=== PATIENT | female | born 1975 | race Two or more races ===

== ENCOUNTER 2019-12-04 10:32 | Inpatient (IN) | payer MEDICAID ==
[~2019-12-04] VITALS: Ht 162.6 cm; Wt 86.8 kg
[2019-12-04 11:25] LABS: Hemoglobin 9.9 g/dL (12.2-16.2); White Blood Cell 4.5 10^3/uL (4.4-10.8)
[2019-12-04 11:28] LABS: Hematocrit 32.6 % (36.0-46.0); Mean Corpuscular Hemoglobin 22.9 pg (28.0-32.0); Mean Corpuscular Hgb Conc. 30.5 g/dL (32.0-36.0); Mean Corpuscular Volume 75.4 fL (80.0-100.0); Platelet Count (auto) 181 10^3/uL (140-450); Red Blood Cells 4.33 10^6/uL (4.0-5.20)
[2019-12-04] MEDS ORDERED: SODIUM CHLORIDE 0.9% 1,000 ML IVB ONE (11:29)
[2019-12-04] MEDS ORDERED: FOLIC ACID 1 MG, MULTIPLE VITAMIN 10 ML, MAGNESIUM SULF SDV 50% 8 MEQ, THIAMINE INJ 100... INJ STA ×5 (11:29)
[2019-12-04 11:30] LABS: Red Cell Distribution Width 21.2 % (11.8-14.3)
[2019-12-04] MEDS ORDERED: SODIUM CHLORIDE 0.9% 1,000 ML IV ONE (11:30)
[2019-12-04] MEDS ORDERED: THIAMINE 100mg/ml INJ (200mg/2ml VIAL) IV ONE ×2 (11:30→14:00)
[2019-12-04 11:31] LABS: Basophils % (auto) 0.8 % (0.0-2.0); Lymphocytes % (auto) 40.4 % (10.0-50.0); Monocytes % (auto) 8.4 % (0.0-12.0); Neutrophils % (auto) 49.4 % (37.0-80.0); Nucleated Red Blood Cells % 0.2 %
[2019-12-04 11:32] LABS: Basophils # (auto) 0 10 ^3/uL (0-0.2); Eosinophils # (auto) 0 10 ^3/uL (0-0.8); Lymphocytes # (auto) 1.8 10 ^3/uL (0.4-5.4); Monocytes # (auto) 0.4 10 ^3/uL (0-1.3); Neutrophils # (auto) 2.2 10 ^3/uL (1.6-8.6)
[2019-12-04 11:42] LABS: Albumin 3.6 g/dL (3.4-5.0); Anion Gap 16 (5-15); Blood Urea Nitrogen 11 mg/dL (7-18); Calcium 7.4 mg/dL (8.5-10.1); Carbon Dioxide 16 mmol/L (21-32); Chloride 105 mmol/L (98-107); Glucose 78 mg/dL (74-106); Potassium 3.5 mmol/L (3.5-5.1); Sodium 137 mmol/L (136-145)
[2019-12-04] MEDS ORDERED: ONDANSETRON HCL 4 MG/2 ML VIAL ONE (11:43)
[2019-12-04] MEDS ORDERED: ONDANSETRON HCL 4 MG/2 ML VIAL IV ONE (11:45)
[2019-12-04 11:47] LABS: Alanine Aminotransferase 57 U/L (13-56); Alkaline Phosphatase 96 U/L (45-117); Aspartate Aminotransferase 61 U/L (15-37); BUN/Creatinine Ratio 12.5; Bilirubin, Total 0.8 mg/dL (0.2-1.0); GFR African American 89 mL/min; GFR Non-African American 74 mL/min; Total Protein 7.9 g/dL (6.4-8.2)
[2019-12-04 12:44] LABS: Amphetamine Screen, Urine NEGATIVE (NEGATIVE); Barbiturate Scree,Urine NEGATIVE (NEGATIVE); Benzodiazephine Screen, Urine NEGATIVE (NEGATIVE); Cannabinoid Screen, Urine NEGATIVE (NEGATIVE); Cocaine Screen, Urine NEGATIVE (NEGATIVE); Opiate Scree,Urine NEGATIVE (NEGATIVE); Phencyclidine Screen, Urine NEGATIVE (NEGATIVE)
[2019-12-04 13:00] LABS: Urine Bacteria FEW /hpf (None Seen); Urine Blood Negative /uL (Negative); Urine Mucus FEW (None Seen); Urine WBC 2 /hpf (0 - 5)
[2019-12-04] MEDS ORDERED: LORazepam 2MG/ML-1ML VIAL IV ONE (13:00)
[2019-12-04] MEDS ORDERED: PROMETHAZINE HCL 25 MG/ML 1ML IV PRN (14:00)
[2019-12-04] MEDS ORDERED: MORPHINE SULF INJ 2 MG/ML SYRINGE 1ML IV PRN (14:00)
[2019-12-04] MEDS ORDERED: NITROGLYCERIN 0.4 MG SL TAB SL PRN (14:00)
[2019-12-04] MEDS ORDERED: traMADol HCL 50 MG TAB PO PRN (14:00)
[2019-12-04] MEDS ORDERED: chlordiazePOXIDE HCL 25 MG CAP PO PRN (14:00)
[2019-12-04] MEDS ORDERED: LORazepam 0.5 MG TAB PO PRN (14:00)
[2019-12-04] MEDS: SODIUM CHLORIDE 0.9% 1,000 ML IV SCH ×2 (14:30→22:27)
[2019-12-04] MEDS ORDERED: LEVOTHYROXINE SODIUM 100 MCG/5 ML INJ IV ONE (15:15)
--- NOTE | 2019-12-04 15:42 | NUR ---
Telemetry admit from [facility] BARNES admitted to Telemetry unit after SBAR received. Patient oriented to CHARMAINE hayden RN, unit, room, bed, and unit policies regarding patient care and visiting hours. Patient now on continuous telemetry monitoring, tele box # 26 and telemetry reading on arrival to unit is SR 84. Patient weighed by bedscale and encouraged to call if they need something. All questions and concerns addressed, patient verbalized understanding.
[2019-12-04] MEDS ORDERED: IBUP1CAP5 PO (16:02)
[2019-12-04 16:34] VITALS: BP 124/91
[2019-12-04] MEDS: chlordiazePOXIDE HCL 5 MG CAP PO SCH ×2 (18:14→23:51)
[2019-12-04 18:15] LABS: Hematocrit 30.8 % (36.0-46.0); Hemoglobin 9.5 g/dL (12.2-16.2)
--- NOTE | 2019-12-04 19:10 | NUR ---
CLOSING SHIFT NOTE Care endorsed to pond sawyer RNSujata. Patient resting in bed, no signs of distress noted.
--- NOTE | 2019-12-04 19:10 | NUR ---
Opening Shift Note Assumed care of patient, awake and alert, but began to cry easily. Pt states she has been trying to pray but feels that "this time I've gone to far for Lance to forgive me." This RN reminded pt that a criminal had been on a cross next to Lance and asked for forgiveness, and Lance gave it to him. This nurse then prayed with pt. Pt smiling, at ease and thanked nurse. No S/S of SOB or pain. Instructed on POC and to call for assist PRN, will continue to monitor for changes Q1hr and PRN. Call light to pt's L side in bed.
[2019-12-04 21:32] VITALS: BP 128/72
[2019-12-05 00:44] LABS: Hematocrit 29.1 % (36.0-46.0); Hemoglobin 9.2 g/dL (12.2-16.2)
[2019-12-05 05:24] VITALS: BP 127/91
[2019-12-05 06:23] LABS: Hemoglobin 9.4 g/dL (12.2-16.2)
[2019-12-05 06:27] LABS: Hematocrit 29.8 % (36.0-46.0)
[2019-12-05] MEDS: SODIUM CHLORIDE 0.9% 1,000 ML IV SCH (06:30)
[2019-12-05] MEDS: chlordiazePOXIDE HCL 5 MG CAP PO SCH ×4 (06:30→23:38)
[2019-12-05] MEDS: LEVOTHYROXINE SODIUM 112 MCG TAB PO SCH (06:30)
[2019-12-05 09:00] VITALS: BP 117/84
--- NOTE | 2019-12-05 09:30 | NUR ---
at bedside MD Guerrero at bedside, aware of patient's status including mild tremors noted to bilat hands. New orders received for b12 lab draw, prozac and dc IVF. Will carry out orders and cont care.
[2019-12-05] MEDS ORDERED: FLUoxetine HCL 10 MG CAP PO ONE (09:45)
[2019-12-05] MEDS: THIAMINE 100mg/ml INJ (200mg/2ml VIAL) IV SCH (10:12)
[2019-12-05] MEDS: PANTOPRAZOLE 40 MG TAB PO SCH (10:12)
[2019-12-05 13:00] VITALS: BP 116/80
[2019-12-05 17:00] VITALS: BP 118/75
--- NOTE | 2019-12-05 18:57 | NUR ---
Patient resting comfortably in bed in no acute distress or sob. Call light within reach. Fall precs in place per protocol. Will endorse care to Noman horn
--- NOTE | 2019-12-05 19:00 | NUR ---
Patient resting in bed. Stated no complaints of pain,discomfort or shortness of breath. Patient is AOx4 and on room air. Bed is locked in lowest position with side rails up x2. Will continue to monitor.
[2019-12-05 22:00] VITALS: BP 127/78
[2019-12-06 05:35] VITALS: BP 116/80
[2019-12-06] MEDS: chlordiazePOXIDE HCL 5 MG CAP PO SCH ×3 (05:41→17:27)
[2019-12-06] MEDS: LEVOTHYROXINE SODIUM 112 MCG TAB PO SCH (06:42)
[2019-12-06] MEDS: PANTOPRAZOLE 40 MG TAB PO SCH (08:11)
[2019-12-06] MEDS: THIAMINE 100mg/ml INJ (200mg/2ml VIAL) IV SCH (08:11)
[2019-12-06 09:00] VITALS: BP 120/79
[2019-12-06] MEDS ORDERED: FLUoxetine HCL 10 MG CAP PO SCH (10:00)
[2019-12-06] MEDS ORDERED: CYANOCOBALAMIN 500 MCG TAB PO SCH (10:00)
[2019-12-06] MEDS ORDERED: LEVO125T7 PO (10:15)
[2019-12-06 13:00] VITALS: BP 123/77
--- NOTE | 2019-12-06 15:03 | NUR ---
Faxed medication prescriptions to pharmacy to fill.
--- NOTE | 2019-12-06 15:03 | NUR ---
RE: transport home Jolie reported that transport should be here at about 4:30.
--- NOTE | 2019-12-06 16:23 | NUR ---
Assessment Patient is a 44-year-old female who is alert and oriented. Prior to admission patient lived home with family and function independently. Patient informed me she can care for his own ADLs. Patient stated she does not need any medical equipment now. Per patient she will return home to her prior living arrangements post discharge and she will need [facility] transportation. Advised patient there is a social service consult for [facility] abuse. Offered patient resources for substance abused. Patient accepted resources. Patient informed she was sober for 6 months and was attending rehabilitation but decline when she moved to [place] and she did not have transportation to continue receiving service. Patient stated she decided to continue without the help but became depress after losing her job. Informed patient he has a right to participate in all discharge planning. Patient verbalized understanding and agreed to discharge plan home. Faxed transportation form request to [facility] requesting for a 16:30 orange picker machine operator time. Per Marcelina with [facility] transportation has been arranged with R[facility] Sh[facility] Ph:( [phone]) via [employer] with a 16:30 orange picker machine operator time. Informed EUFEMIA Yu. Addendum: 12/06/19 at 1625 by RUBY HER Amended: Links added.
--- NOTE | 2019-12-06 17:00 | NUR ---
Patients IV discontinued. Catheter intact. Tolerated well
--- NOTE | 2019-12-06 17:11 | NUR ---
Patient medications given to patient from pharmacy
--- NOTE | 2019-12-06 17:39 | NUR ---
Patient discharged with all belongings, no s/s of distress noted at time of DC. Patient discharged with family. Addendum: 12/06/19 at 1756 by Michelle Grace RN WRONG PATIENT.
--- NOTE | 2019-12-06 17:56 | NUR ---
Patient discharged with all belongings and medications. Patient ambulated (per her request), with her transporters. No s/s of distress noted at time of DC. Patient thanks staff for their help.
== END 2019-12-06 17:56 | disposition home or self-care (01) | DRG 775 ==
LOC: ER 10:32 → TELE 10:33 → TELE-CENTR 15:48
PROVIDERS: ADMIT Internal Medicine; ATTEND Internal Medicine
DX: F10.231 Alcohol dependence with withdrawal delirium (principal); K70.10 Alcoholic hepatitis without ascites; F33.9 Major depressive disorder, recurrent, unspecified; E03.9 Hypothyroidism, unspecified; G62.9 Polyneuropathy, unspecified; D50.8 Other iron deficiency anemias; K29.20 Alcoholic gastritis without bleeding; F41.9 Anxiety disorder, unspecified; I10 Essential (primary) hypertension; E66.3 Overweight; Y90.9 Presence of alcohol in blood, level not specified; Z68.30 Body mass index [BMI] 30.0-30.9, adult; Z91.19 Patient's noncompliance with other medical treatment and regimen; Z85.850 Personal history of malignant neoplasm of thyroid
CPT/HCPCS: 36415; 80053; 80307; 80320; 81001; 81025; 82607; 82962; 83735; 84443; 84484; 85007; 85014; 85018; 85025; 85027; 85045; 96361; 96365; 96375; G0378; J2405; J3490

== ENCOUNTER 2019-12-16 11:07 | Inpatient (IN) | payer MEDICAID ==
[~2019-12-16] VITALS: Ht 162.6 cm; Wt 82.1 kg
[~2019-12-16 11:07] MED LIST: LEVO125T7 PO
[2019-12-16] MEDS ORDERED: SODIUM CHLORIDE 0.9% 1,000 ML IVB ONE (11:14)
[2019-12-16] MEDS ORDERED: PROCHLORPERAZINE EDISYLATE 5 MG/ML 2ML VIAL IV ONE (11:15)
[2019-12-16] MEDS ORDERED: LORazepam 2MG/ML-1ML VIAL IV ONE (11:15)
[2019-12-16] MEDS ORDERED: PANTOPRAZOLE 40 MG/10 ML VIAL INJ IV ONE (11:15)
[2019-12-16 11:34] LABS: Basophils # (auto) 0 10 ^3/uL (0-0.2); Basophils % (auto) 0.2 % (0.0-2.0); Eosinophils # (auto) 0 10 ^3/uL (0-0.8)
[2019-12-16 11:37] LABS: Hemoglobin 10.8 g/dL (12.2-16.2); Lymphocytes # (auto) 0.7 10 ^3/uL (0.4-5.4); Lymphocytes % (auto) 5.1 % (10.0-50.0); Mean Corpuscular Hemoglobin 23.6 pg (28.0-32.0); Mean Corpuscular Hgb Conc. 29.2 g/dL (32.0-36.0); Mean Corpuscular Volume 80.9 fL (80.0-100.0); Monocytes # (auto) 0.9 10 ^3/uL (0-1.3); Monocytes % (auto) 6.9 % (0.0-12.0); Neutrophils # (auto) 11.6 10 ^3/uL (1.6-8.6); Neutrophils % (auto) 87.8 % (37.0-80.0); Nucleated Red Blood Cells % 0.3 %; Platelet Count (auto) 306 10^3/uL (140-450); Red Blood Cells 4.57 10^6/uL (4.0-5.20); Red Cell Distribution Width 21.1 % (11.8-14.3); White Blood Cell 13.3 10^3/uL (4.4-10.8)
[2019-12-16 11:51] LABS: Albumin 4.7 g/dL (3.4-5.0); Anion Gap 23 (5-15); Blood Alcohol < 3.0 mg/dL (0-5); Blood Urea Nitrogen 11 mg/dL (7-18); Calcium 7.8 mg/dL (8.5-10.1); Chloride 107 mmol/L (98-107); Glucose 178 mg/dL (74-106); Lipase 523 U/L (73-393); Potassium 4.6 mmol/L (3.5-5.1); Sodium 136 mmol/L (136-145)
[2019-12-16 11:55] LABS: Alanine Aminotransferase 51 U/L (13-56); Alkaline Phosphatase 122 U/L (45-117); Aspartate Aminotransferase 51 U/L (15-37); BUN/Creatinine Ratio 6.8; Bilirubin, Total 1.8 mg/dL (0.2-1.0); GFR African American 44 mL/min; GFR Non-African American 37 mL/min; Total Protein 10.2 g/dL (6.4-8.2)
[2019-12-16 11:59] LABS: Carbon Dioxide 6 mmol/L (21-32)
[2019-12-16] MEDS ORDERED: cefTRIAXone 1GM/50ML D5W 50 ML IV ONE (14:45)
[2019-12-16] MEDS ORDERED: MORPHINE SULF INJ 2 MG/ML SYRINGE 1ML IV PRN (14:45)
[2019-12-16] MEDS ORDERED: SODIUM CHLORIDE 0.9% 1,000 ML IV ONE (14:45)
[2019-12-16] MEDS ORDERED: NITROGLYCERIN 0.4 MG SL TAB SL PRN (14:45)
[2019-12-16] MEDS ORDERED: SODIUM CHLORIDE 0.9% 2,400 ML IV ONE (15:00)
[2019-12-16 15:21] LABS: Salicylate 2.4 mg/dL (2.8-20.0)
[2019-12-16 15:22] LABS: Acetaminophen < 2.0 ug/mL (10-30)
[2019-12-16] MEDS: SODIUM CHLORIDE 0.9% 1,000 ML IV SCH (16:42)
[2019-12-16] MEDS ORDERED: THIAMINE 100mg/ml INJ (200mg/2ml VIAL) IV ONE (16:45)
[2019-12-16] MEDS ORDERED: chlordiazePOXIDE HCL 25 MG CAP PO PRN (16:45)
[2019-12-16] MEDS: chlordiazePOXIDE HCL 5 MG CAP PO SCH (17:42)
[2019-12-16 18:04] LABS: Hemoglobin 9.6 g/dL (12.2-16.2)
[2019-12-16 18:06] LABS: INR 1.17 (0.9-1.15)
[2019-12-16 18:10] LABS: BUN/Creatinine Ratio 7.2; Calcium 7.3 mg/dL (8.5-10.1); Potassium 3.9 mmol/L (3.5-5.1)
--- NOTE | 2019-12-16 19:30 | NUR ---
Opening Shift Note Assumed care of patient, awake and alert x4. No S/S of distress/SOB or pain. Call light is within reach, side rails up x2, bed is in the lowest position. Instructed on POC and to call for assist PRN, will continue to monitor for changes Q1hr and PRN.
[2019-12-16 22:00] VITALS: BP 116/72
[2019-12-16] MEDS: PANTOPRAZOLE 40 MG/10 ML VIAL INJ IV SCH (22:31)
[2019-12-16] MEDS: metroNIDAZOLE 500MG/100ML 100 ML IV SCH (22:31)
--- NOTE | 2019-12-16 23:03 | NUR ---
Urine sample collected and sent to lab via [email or web address] system.
[2019-12-16 23:35] LABS: Urine Bacteria FEW /hpf (None Seen); Urine Blood 1+ /uL (Negative); Urine Mucus FEW (None Seen); Urine Specific Gravity 1.014 (1.001-1.035); Urine WBC 4 /hpf (0 - 5)
[2019-12-16 23:48] LABS: Amphetamine Screen, Urine NEGATIVE (NEGATIVE); Barbiturate Scree,Urine NEGATIVE (NEGATIVE); Benzodiazephine Screen, Urine POSITIVE (NEGATIVE); Cannabinoid Screen, Urine NEGATIVE (NEGATIVE); Cocaine Screen, Urine NEGATIVE (NEGATIVE); Opiate Scree,Urine NEGATIVE (NEGATIVE); Phencyclidine Screen, Urine NEGATIVE (NEGATIVE)
[2019-12-17] MEDS: SODIUM CHLORIDE 0.9% 1,000 ML IV SCH ×3 (00:01→12:44)
[2019-12-17 00:03] LABS: Alcohol, Urine < 3.0 mg/dL (0-10)
[2019-12-17 00:50] LABS: Hematocrit 29.1 % (36.0-46.0)
[2019-12-17 05:00] VITALS: BP 102/56
[2019-12-17 05:39] LABS: Basophils # (auto) 0 10 ^3/uL (0-0.2); Eosinophils # (auto) 0.1 10 ^3/uL (0-0.8); Eosinophils % (auto) 1.2 % (0.0-7.0); Hemoglobin 9.2 g/dL (12.2-16.2); Lymphocytes # (auto) 0.9 10 ^3/uL (0.4-5.4); Monocytes # (auto) 0.3 10 ^3/uL (0-1.3)
[2019-12-17 05:42] LABS: Basophils % (auto) 0.1 % (0.0-2.0); Lymphocytes % (auto) 14.9 % (10.0-50.0); Mean Corpuscular Hemoglobin 23.9 pg (28.0-32.0); Mean Corpuscular Hgb Conc. 30.6 g/dL (32.0-36.0); Monocytes % (auto) 5.6 % (0.0-12.0); Neutrophils # (auto) 4.6 10 ^3/uL (1.6-8.6); Neutrophils % (auto) 78.2 % (37.0-80.0); Nucleated Red Blood Cells % 0.4 %; Platelet Count (auto) 211 10^3/uL (140-450); Red Blood Cells 3.84 10^6/uL (4.0-5.20); White Blood Cell 5.9 10^3/uL (4.4-10.8)
[2019-12-17 05:58] LABS: Albumin 3.8 g/dL (3.4-5.0); Calcium 7.6 mg/dL (8.5-10.1); Potassium 3.3 mmol/L (3.5-5.1)
[2019-12-17 06:02] LABS: Bilirubin, Total 0.9 mg/dL (0.2-1.0); Total Protein 8.2 g/dL (6.4-8.2)
[2019-12-17] MEDS: metroNIDAZOLE 500MG/100ML 100 ML IV SCH (06:04)
[2019-12-17] MEDS: chlordiazePOXIDE HCL 5 MG CAP PO SCH ×5 (06:04→23:22)
[2019-12-17 06:05] LABS: Cholesterol 196 mg/dL (< 200); HDL Cholesterol 40 mg/dL (40-59); LDL Cholesterol 115 mg/dL (< 100); Triglycerides 335 mg/dL (< 150)
[2019-12-17 06:41] LABS: Red Cell Distribution Width 21.3 % (11.8-14.3)
--- NOTE | 2019-12-17 07:30 | NUR ---
Opening Shift Note Assumed care of patient, awake and alert. No S/S of distress/SOB or pain. Instructed on POC and to call for assist PRN, will continue to monitor for changes Q1hr and PRN.
[2019-12-17 08:00] VITALS: BP 103/58
[2019-12-17 09:00] VITALS: BP 103/58
[2019-12-17] MEDS ORDERED: cefTRIAXone 1GM/50ML D5W 50 ML IV SCH (09:00)
[2019-12-17] MEDS: PANTOPRAZOLE 40 MG/10 ML VIAL INJ IV SCH (10:04)
[2019-12-17] MEDS: THIAMINE 100mg/ml INJ (200mg/2ml VIAL) IV SCH (10:04)
[2019-12-17] MEDS ORDERED: LEVOTHYROXINE SODIUM 100 MCG/5 ML INJ IV ONE (13:00)
[2019-12-17 13:12] VITALS: BP 103/60
--- NOTE | 2019-12-17 13:40 | NUR ---
patient off unit to procedure.
[2019-12-17] MEDS ORDERED: SODIUM CHLORIDE LOCK 10 ML ONE (14:04)
[2019-12-17] MEDS ORDERED: LIDOCAINE VISCOUS 2% 15ML UD ONE (14:04)
[2019-12-17] MEDS ORDERED: diphenhdrAMINE HCL 50 MG/1 ML VL ONE (14:05)
--- NOTE | 2019-12-17 14:40 | NUR ---
patient back from procedure. tolerated well. no abnormal events. patient currently pain free and sleeping.
[2019-12-17] MEDS: MIDAZOLAM HCL 5 MG/ML-1ML VIAL ONE ×2 (14:45→14:48)
[2019-12-17] MEDS: fentaNYL CITRATE 100 MCG/2 ML VL ONE ×2 (14:45→14:48)
[2019-12-17 17:00] VITALS: BP 100/64
[2019-12-17] MEDS: GABAPENTIN 300 MG CAP PO SCH ×2 (17:59→22:41)
--- NOTE | 2019-12-17 19:35 | NUR ---
Opening note Pt is resting in right lateral position with eyes closed. Respirations are even and nonlabored on room air. no s/s of pain or discomfort at this time. Bed in low locked position, call light within reach.
[2019-12-17] MEDS: PANTOPRAZOLE 40 MG TAB PO SCH (22:41)
[2019-12-18 00:43] VITALS: BP 109/73
[2019-12-18 06:09] VITALS: BP 114/77
[2019-12-18] MEDS: chlordiazePOXIDE HCL 5 MG CAP PO SCH ×2 (06:09→12:05)
[2019-12-18] MEDS: GABAPENTIN 300 MG CAP PO SCH ×2 (06:10→14:23)
[2019-12-18] MEDS ORDERED: LEVOTHYROXINE SODIUM 100 MCG TAB PO SCH (07:00)
[2019-12-18] MEDS ORDERED: LEVOTHYROXINE SODIUM 25 MCG TAB PO SCH (07:00)
--- NOTE | 2019-12-18 07:33 | NUR ---
closing note pt resting in left lateral position. no s/s of pain or discomfort. bed in low locked position, call light within reach.
[2019-12-18 08:00] VITALS: BP 131/79
--- NOTE | 2019-12-18 09:00 | NUR ---
During breakfast patient state that when swallowing food throat and stomach hurts. Will informed Dr. Basurto and continue to monitor.
[2019-12-18 09:16] VITALS: BP 131/79
[2019-12-18] MEDS: PANTOPRAZOLE 40 MG TAB PO SCH (09:51)
[2019-12-18] MEDS: THIAMINE 100mg/ml INJ (200mg/2ml VIAL) IV SCH (09:51)
[2019-12-18] MEDS ORDERED: FLUoxetine HCL 10 MG CAP PO SCH (10:00)
[2019-12-18] MEDS ORDERED: LEVOTHYROXINE SODIUM 100 MCG/5 ML INJ IV SCH (10:00)
--- NOTE | 2019-12-18 12:50 | NUR ---
Dr. Basurto is informed about pain in the throat during swallowing and the stomach when eating. Dr. Basurto stated that he would round on the patient.
[2019-12-18 13:00] VITALS: BP 123/78
--- NOTE | 2019-12-18 16:30 | NUR ---
Discharge instructions given as ordered. Encourage to follow up with PMD as instructed. All questions and concerns addressed. Patient verbalized understanding. IV removed with catheter intact, pressure dressing applied. Patient taken to vehicle via wheelchair with all personal belongings, accompanied by staff and family member. No distress noted at time of departure.
== END 2019-12-18 16:30 | disposition home or self-care (01) | DRG 241 ==
LOC: ER 11:07 → TELE 11:08 → TELE-WESTW 16:16 → WEST WING 12-17 15:52
PROVIDERS: ADMIT Internal Medicine; ATTEND Internal Medicine
PROC: 0DB68ZX Excision of Stomach, Via Natural or Artificial Opening Endoscopic, Diagnostic (ICD-10-PCS; principal; 2019-12-17 14:44)
DX: K29.20 Alcoholic gastritis without bleeding (principal); E87.2 Acidosis; K57.91 Diverticulosis of intestine, part unspecified, without perforation or abscess with bleeding; D62 Acute posthemorrhagic anemia; G62.9 Polyneuropathy, unspecified; K20.8 Other esophagitis; R13.10 Dysphagia, unspecified; E86.0 Dehydration; F10.230 Alcohol dependence with withdrawal, uncomplicated; D72.829 Elevated white blood cell count, unspecified; F41.9 Anxiety disorder, unspecified; F32.9 Major depressive disorder, single episode, unspecified; E89.0 Postprocedural hypothyroidism; I10 Essential (primary) hypertension; K22.8 Other specified diseases of esophagus; E87.6 Hypokalemia; Z80.9 Family history of malignant neoplasm, unspecified; Z82.49 Family history of ischemic heart disease and other diseases of the circulatory system; Z82.5 Family history of asthma and other chronic lower respiratory diseases; Z85.850 Personal history of malignant neoplasm of thyroid; Z88.1 Allergy status to other antibiotic agents; Z88.5 Allergy status to narcotic agent
CPT/HCPCS: 36415; 71045; 74176; 80048; 80053; 80061; 80307; 80320; 80329; 81001; 81025; 82150; 82378; 83605; 83690; 83930; 83935; 84443; 84702; 85014; 85018; 85025; 85045; 85610; 85652; 86141; 87086; 96361; 96365; 96375; C9113; G0378; J0696; J2250; J3490

== ENCOUNTER 2020-07-27 12:31 | Emergency (ER) | payer MEDICAID ==
[~2020-07-27] VITALS: Ht 162.6 cm; Wt 90.7 kg
[2020-07-27] MEDS ORDERED: SODIUM CHLORIDE 0.9% 1,000 ML IV ONE (12:45)
[2020-07-27] MEDS ORDERED: LORazepam 2MG/ML-1ML VIAL IV ONE (12:45)
[2020-07-27 13:53] LABS: Basophils # (auto) 0 10 ^3/uL (0-0.2); Eosinophils # (auto) 0.1 10 ^3/uL (0-0.8); Hemoglobin 9.8 g/dL (12.2-16.2); Lymphocytes # (auto) 1.2 10 ^3/uL (0.4-5.4); Nucleated Red Blood Cells % 0.1 %; Platelet Count (auto) 183 10^3/uL (140-450); White Blood Cell 4.6 10^3/uL (4.4-10.8)
[2020-07-27 13:56] LABS: Basophils % (auto) 0.9 % (0.0-2.0); Eosinophils % (auto) 1.1 % (0.0-7.0); Hematocrit 30.2 % (36.0-46.0); Lymphocytes % (auto) 25.6 % (10.0-50.0); Mean Corpuscular Hemoglobin 24.2 pg (28.0-32.0); Mean Corpuscular Hgb Conc. 32.3 g/dL (32.0-36.0); Mean Corpuscular Volume 74.7 fL (80.0-100.0); Monocytes # (auto) 0.4 10 ^3/uL (0-1.3); Monocytes % (auto) 9.1 % (0.0-12.0); Neutrophils # (auto) 2.9 10 ^3/uL (1.6-8.6); Neutrophils % (auto) 63.3 % (37.0-80.0); Red Blood Cells 4.05 10^6/uL (4.0-5.20); Red Cell Distribution Width 20.8 % (11.8-14.3)
[2020-07-27 14:35] LABS: Calcium 6.9 mg/dL (8.5-10.1); Potassium 3.2 mmol/L (3.5-5.1)
[2020-07-27 14:41] LABS: Albumin 4.2 g/dL (3.4-5.0); Bilirubin, Total 2.2 mg/dL (0.2-1.0); Total Protein 8.5 g/dL (6.4-8.2)
[2020-07-27 15:29] VITALS: BP 125/86
== END 2020-07-27 15:31 | disposition home or self-care (01) ==
LOC: ER 12:31
DX: F10.239 Alcohol dependence with withdrawal, unspecified (principal); Z88.6 Allergy status to analgesic agent; Y90.8 Blood alcohol level of 240 mg/100 ml or more
CPT/HCPCS: 36415; 80053; 80320; 85025; 93005; 96361; 96374; 99284; J2060; J7030

== ENCOUNTER 2020-10-19 14:31 | Emergency (ER) | payer MEDICAID ==
[~2020-10-19] VITALS: Ht 162.6 cm; Wt 79.4 kg
[2020-10-19 15:57] LABS: Basophils # (auto) 0 10 ^3/uL (0-0.2); Basophils % (auto) 0.6 % (0.0-2.0); Hemoglobin 10.5 g/dL (12.2-16.2); Mean Corpuscular Hemoglobin 25.5 pg (28.0-32.0); Nucleated Red Blood Cells % 0.1 %
[2020-10-19 15:58] LABS: Eosinophils # (auto) 0.1 10 ^3/uL (0-0.8); Eosinophils % (auto) 2.1 % (0.0-7.0); Hematocrit 33.2 % (36.0-46.0); Lymphocytes # (auto) 1.9 10 ^3/uL (0.4-5.4); Lymphocytes % (auto) 26.5 % (10.0-50.0); Mean Corpuscular Hgb Conc. 31.7 g/dL (32.0-36.0); Mean Corpuscular Volume 80.4 fL (80.0-100.0); Monocytes # (auto) 0.5 10 ^3/uL (0-1.3); Monocytes % (auto) 7.8 % (0.0-12.0); Neutrophils # (auto) 4.4 10 ^3/uL (1.6-8.6); Platelet Count (auto) 172 10^3/uL (140-450); Red Blood Cells 4.12 10^6/uL (4.0-5.20)
[2020-10-19 16:14] LABS: Red Cell Distribution Width 23.5 % (11.8-14.3)
[2020-10-19 16:16] LABS: Albumin 4.1 g/dL (3.4-5.0); Anion Gap 10 (5-15); BUN/Creatinine Ratio 15.8; Blood Urea Nitrogen 12 mg/dL (7-18); Carbon Dioxide 21 mmol/L (21-32); Chloride 102 mmol/L (98-107); GFR African American 105 mL/min; GFR Non-African American 87 mL/min; Glucose 112 mg/dL (74-106); Magnesium 2.3 mg/dL (1.6-2.6); Potassium 3.6 mmol/L (3.5-5.1); Sodium 133 mmol/L (136-145)
[2020-10-19 16:21] LABS: Alanine Aminotransferase 55 U/L (13-56); Alkaline Phosphatase 83 U/L (45-117); Aspartate Aminotransferase 78 U/L (15-37); Bilirubin, Total 1.2 mg/dL (0.2-1.0); Total Protein 8.5 g/dL (6.4-8.2)
[2020-10-19 16:26] LABS: INR 1.12 (0.9-1.15); Partial Thromboplastin Time 27.9 sec (23.0-31.2)
[2020-10-19 17:06] VITALS: BP 117/80
== END 2020-10-19 17:08 | disposition home or self-care (01) ==
LOC: ER 14:31
DX: H91.93 Unspecified hearing loss, bilateral (principal); F44.9 Dissociative and conversion disorder, unspecified; Z88.6 Allergy status to analgesic agent
CPT/HCPCS: 36415; 70450; 71045; 80053; 83735; 83880; 84484; 84702; 85025; 85379; 85610; 85730; 93005

== ENCOUNTER 2021-03-11 14:33 | Inpatient (IN) | payer MEDICAID ==
[~2021-03-11] VITALS: Ht 162.6 cm; Wt 75.5 kg
[2021-03-11 14:59] LABS: Eosinophils # (auto) 0.1 10 ^3/uL (0-0.8); Hemoglobin 10.4 g/dL (12.2-16.2); Neutrophils # (auto) 1.8 10 ^3/uL (1.6-8.6)
[2021-03-11 15:01] LABS: Basophils # (auto) 0 10 ^3/uL (0-0.2); Basophils % (auto) 1.1 % (0.0-2.0); Eosinophils % (auto) 3.7 % (0.0-7.0); Hematocrit 32.7 % (36.0-46.0); Lymphocytes # (auto) 1.9 10 ^3/uL (0.4-5.4); Lymphocytes % (auto) 47.3 % (10.0-50.0); Mean Corpuscular Hemoglobin 24.4 pg (28.0-32.0); Mean Corpuscular Volume 76.3 fL (80.0-100.0); Monocytes # (auto) 0.1 10 ^3/uL (0-1.3); Monocytes % (auto) 3.4 % (0.0-12.0); Neutrophils % (auto) 44.5 % (37.0-80.0); Nucleated Red Blood Cells % 0.2 %; Red Blood Cells 4.29 10^6/uL (4.0-5.20)
[2021-03-11 15:11] LABS: Albumin 3.9 g/dL (3.4-5.0); Anion Gap 16 (5-15); Blood Urea Nitrogen 7 mg/dL (7-18); Calcium 7.2 mg/dL (8.5-10.1); Carbon Dioxide 17 mmol/L (21-32); Chloride 107 mmol/L (98-107); Glucose 84 mg/dL (74-106); Potassium 3.1 mmol/L (3.5-5.1); Sodium 140 mmol/L (136-145)
[2021-03-11 15:16] LABS: Alanine Aminotransferase 56 U/L (13-56); Alkaline Phosphatase 101 U/L (45-117); Aspartate Aminotransferase 112 U/L (15-37); BUN/Creatinine Ratio 7.5; Bilirubin, Total 0.8 mg/dL (0.2-1.0); GFR African American 83 mL/min; GFR Non-African American 69 mL/min; Red Cell Distribution Width 22.3 % (11.8-14.3); Total Protein 8.6 g/dL (6.4-8.2)
[2021-03-11] MEDS ORDERED: POTASSIUM CHL 20 Meq TABLET PO ONE (16:15)
[2021-03-11] MEDS ORDERED: LORazepam 2MG/ML-1ML VIAL IV ONE (17:15)
[2021-03-11] MEDS ORDERED: NITROGLYCERIN 0.4 MG SL TAB SL PRN (18:30)
[2021-03-11] MEDS ORDERED: MORPHINE SULFATE INJECTION 2 MG/ML SYRG IV PRN ×2 (18:30→18:45)
[2021-03-11] MEDS ORDERED: POTASSIUM EFFERVESENT TAB 25 MEQ PO ONE (18:45)
[2021-03-11] MEDS ORDERED: THIAMINE 100mg/ml INJ (200mg/2ml VIAL) IV ONE (18:45)
[2021-03-11] MEDS ORDERED: LACTULOSE 20Gm/30ML SOLN PO PRN (18:45)
[2021-03-11] MEDS: SODIUM CHLORIDE 0.9% 1,000 ML IV SCH (19:45)
[2021-03-11] MEDS: traMADol HCL 50 MG TAB PO PRN (19:55)
[2021-03-11] MEDS: chlordiazePOXIDE HCL 25 MG CAP PO PRN (21:43)
[2021-03-11] MEDS ORDERED: ATORVASTATIN 20 MG TAB PO SCH (22:00)
[2021-03-11] MEDS ORDERED: TEMAZEPAM 15 MG CAP PO PRN (22:00)
[2021-03-11] MEDS: METOPROLOL TARTRATE 25 MG TAB PO SCH (22:40)
[2021-03-12 04:39] LABS: Cholesterol 261 mg/dL (< 200); HDL Cholesterol 22 mg/dL (40-59); LDL Cholesterol 186 mg/dL (< 100); Triglycerides 319 mg/dL (< 150)
[2021-03-12] MEDS: chlordiazePOXIDE HCL 25 MG CAP PO PRN (04:41)
[2021-03-12] MEDS: SODIUM CHLORIDE 0.9% 1,000 ML IV SCH ×2 (09:04→21:25)
[2021-03-12] MEDS: ASPirin 81 mg TAB PO SCH (12:03)
[2021-03-12] MEDS: PANTOPRAZOLE 40 MG TAB PO SCH (12:03)
[2021-03-12] MEDS: NITROGLYCERIN 0.2MG/HR TOPICAL PATCH TD SCH (12:04)
[2021-03-12] MEDS: ENOXAPARIN SOD 40 MG/0.4 ML SYRINGE SC SCH (12:04)
[2021-03-12] MEDS: METOPROLOL TARTRATE 25 MG TAB PO SCH ×2 (12:17→22:00)
[2021-03-12] MEDS: THIAMINE 100mg/ml INJ (200mg/2ml VIAL) IV SCH (12:18)
[2021-03-12] MEDS ORDERED: LEVOTHYROXINE SODIUM 112 MCG TAB PO ONE (12:30)
[2021-03-12] MEDS ORDERED: LEVOTHYROXINE SODIUM 100 MCG/5 ML INJ IV ONE (12:45)
[2021-03-12] MEDS: ATORVASTATIN 20 MG TAB PO SCH ×2 (12:45→23:50)
[2021-03-12] MEDS: PROMETHAZINE HCL 25 MG/ML 1ML IV PRN (18:05)
[2021-03-13 01:15] VITALS: BP 119/78
[2021-03-13 05:00] VITALS: BP 97/73
[2021-03-13] MEDS ORDERED: LEVOTHYROXINE SODIUM 112 MCG TAB PO SCH (07:00)
[2021-03-13] MEDS ORDERED: ADENOSINE 68 MG in GIVE UN-DILUTED 0 ML IV STA (07:16)
[2021-03-13 08:01] LABS: Basophils # (auto) 0 10 ^3/uL (0-0.2); Hemoglobin 9.3 g/dL (12.2-16.2); Monocytes # (auto) 0.2 10 ^3/uL (0-1.3); Monocytes % (auto) 3.7 % (0.0-12.0); Neutrophils # (auto) 2.9 10 ^3/uL (1.6-8.6); White Blood Cell 5.3 10^3/uL (4.4-10.8)
[2021-03-13 08:04] LABS: Basophils % (auto) 0.8 % (0.0-2.0); Eosinophils # (auto) 0.1 10 ^3/uL (0-0.8); Eosinophils % (auto) 2.4 % (0.0-7.0); Hematocrit 28.6 % (36.0-46.0); Lymphocytes % (auto) 38.2 % (10.0-50.0); Mean Corpuscular Hemoglobin 25.1 pg (28.0-32.0); Mean Corpuscular Hgb Conc. 32.5 g/dL (32.0-36.0); Mean Corpuscular Volume 77.5 fL (80.0-100.0); Neutrophils % (auto) 54.9 % (37.0-80.0); Nucleated Red Blood Cells % 0.3 %; Red Blood Cells 3.69 10^6/uL (4.0-5.20)
[2021-03-13 08:13] LABS: Red Cell Distribution Width 22.3 % (11.8-14.3)
[2021-03-13 08:27] LABS: Calcium 6.3 mg/dL (8.5-10.1)
[2021-03-13 08:32] LABS: BUN/Creatinine Ratio 12.9; Bilirubin, Total 0.8 mg/dL (0.2-1.0); Total Protein 6.8 g/dL (6.4-8.2)
[2021-03-13 08:42] VITALS: BP 106/77
[2021-03-13] MEDS: THIAMINE 100mg/ml INJ (200mg/2ml VIAL) IV SCH (09:50)
[2021-03-13] MEDS: ASPirin 81 mg TAB PO SCH (09:50)
[2021-03-13] MEDS: LEVOTHYROXINE SODIUM 100 MCG/5 ML INJ IV SCH (09:50)
[2021-03-13] MEDS: PANTOPRAZOLE 40 MG TAB PO SCH (09:51)
[2021-03-13] MEDS: ENOXAPARIN SOD 40 MG/0.4 ML SYRINGE SC SCH (09:51)
[2021-03-13] MEDS: SODIUM CHLORIDE 0.9% 1,000 ML IV SCH ×2 (09:52→23:48)
[2021-03-13] MEDS: METOPROLOL TARTRATE 25 MG TAB PO SCH ×2 (10:00→22:27)
[2021-03-13] MEDS: NITROGLYCERIN 0.2MG/HR TOPICAL PATCH TD SCH (10:00)
[2021-03-13 13:00] VITALS: BP_SYST 108; BP_SYST 113; BP_DIAS 68; BP_DIAS 72
[2021-03-13] MEDS: traMADol HCL 50 MG TAB PO PRN (15:33)
[2021-03-13 17:00] VITALS: BP 113/68
[2021-03-13] MEDS: ATORVASTATIN 20 MG TAB PO SCH (21:54)
[2021-03-13 22:00] VITALS: BP 114/76
[2021-03-14 05:00] VITALS: BP 116/73
[2021-03-14 09:16] VITALS: BP 118/83
[2021-03-14] MEDS: LEVOTHYROXINE SODIUM 100 MCG/5 ML INJ IV SCH (09:34)
[2021-03-14] MEDS: ASPirin 81 mg TAB PO SCH (09:34)
[2021-03-14] MEDS: THIAMINE 100mg/ml INJ (200mg/2ml VIAL) IV SCH (09:34)
[2021-03-14] MEDS: ENOXAPARIN SOD 40 MG/0.4 ML SYRINGE SC SCH (09:35)
[2021-03-14] MEDS: PANTOPRAZOLE 40 MG TAB PO SCH (09:35)
[2021-03-14] MEDS: METOPROLOL TARTRATE 25 MG TAB PO SCH ×2 (09:35→22:04)
[2021-03-14] MEDS: NITROGLYCERIN 0.2MG/HR TOPICAL PATCH TD SCH (09:36)
[2021-03-14] MEDS ORDERED: LEVOTHYROXINE SODIUM 25 MCG TAB PO ONE ×2 (10:00→10:45)
[2021-03-14] MEDS ORDERED: LEVOTHYROXINE SODIUM 112 MCG TAB PO ONE (10:45)
[2021-03-14 13:00] VITALS: BP 134/88
[2021-03-14] MEDS: SODIUM CHLORIDE 0.9% 1,000 ML IV SCH ×2 (13:55→17:27)
[2021-03-14 22:00] VITALS: BP 108/76
[2021-03-14] MEDS: ATORVASTATIN 20 MG TAB PO SCH (22:04)
[2021-03-15 05:00] VITALS: BP 102/66
[2021-03-15] MEDS: LEVOTHYROXINE SODIUM 137 MCG TAB PO SCH ×2 (06:12)
[2021-03-15] MEDS: SODIUM CHLORIDE 0.9% 1,000 ML IV SCH ×2 (08:12→23:36)
[2021-03-15 09:00] VITALS: BP 101/68
[2021-03-15] MEDS: ASPirin 81 mg TAB PO SCH (09:59)
[2021-03-15] MEDS: THIAMINE 100mg/ml INJ (200mg/2ml VIAL) IV SCH (09:59)
[2021-03-15] MEDS: ENOXAPARIN SOD 40 MG/0.4 ML SYRINGE SC SCH (09:59)
[2021-03-15] MEDS: LEVOTHYROXINE SODIUM 100 MCG/5 ML INJ IV SCH (09:59)
[2021-03-15] MEDS: PANTOPRAZOLE 40 MG TAB PO SCH (09:59)
[2021-03-15] MEDS: METOPROLOL TARTRATE 25 MG TAB PO SCH ×2 (10:00→21:48)
[2021-03-15] MEDS: NITROGLYCERIN 0.2MG/HR TOPICAL PATCH TD SCH (10:00)
[2021-03-15] MEDS ORDERED: POTASSIUM EFFERVESENT TAB 25 MEQ PO ONE (10:45)
[2021-03-15 13:00] VITALS: BP 110/83
[2021-03-15] MEDS: PROMETHAZINE HCL 25 MG/ML 1ML IV PRN (15:31)
[2021-03-15 17:00] VITALS: BP 121/78
[2021-03-15] MEDS: ATORVASTATIN 20 MG TAB PO SCH (21:48)
[2021-03-15 22:00] VITALS: BP 100/66
[2021-03-16 05:00] VITALS: BP 117/79
[2021-03-16] MEDS: LEVOTHYROXINE SODIUM 137 MCG TAB PO SCH ×2 (06:16)
[2021-03-16 06:57] LABS: Calcium 6.8 mg/dL (8.5-10.1); Potassium 3.2 mmol/L (3.5-5.1)
[2021-03-16 06:59] LABS: BUN/Creatinine Ratio 7.5
[2021-03-16 08:30] VITALS: BP 108/72
[2021-03-16] MEDS: ENOXAPARIN SOD 40 MG/0.4 ML SYRINGE SC SCH (09:52)
[2021-03-16] MEDS: PANTOPRAZOLE 40 MG TAB PO SCH (09:52)
[2021-03-16] MEDS: ASPirin 81 mg TAB PO SCH (09:52)
[2021-03-16] MEDS: METOPROLOL TARTRATE 25 MG TAB PO SCH ×2 (09:53→22:00)
[2021-03-16] MEDS: NITROGLYCERIN 0.2MG/HR TOPICAL PATCH TD SCH (09:53)
[2021-03-16] MEDS: THIAMINE 100mg/ml INJ (200mg/2ml VIAL) IV SCH (09:54)
[2021-03-16] MEDS: LEVOTHYROXINE SODIUM 100 MCG/5 ML INJ IV SCH (11:46)
[2021-03-16] MEDS: SODIUM CHLORIDE 0.9% 1,000 ML IV SCH (18:45)
[2021-03-16] MEDS ORDERED: POTASSIUM CHL 20 Meq TABLET PO ONE (19:15)
[2021-03-16 21:30] VITALS: BP 107/72
[2021-03-16] MEDS: ATORVASTATIN 20 MG TAB PO SCH ×2 (23:00→23:49)
[2021-03-17 05:42] VITALS: BP 110/61
[2021-03-17] MEDS: LEVOTHYROXINE SODIUM 137 MCG TAB PO SCH ×2 (07:10)
[2021-03-17] MEDS: SODIUM CHLORIDE 0.9% 1,000 ML IV SCH (07:10)
[2021-03-17 09:00] VITALS: BP 123/77
[2021-03-17] MEDS: LEVOTHYROXINE SODIUM 100 MCG/5 ML INJ IV SCH (09:46)
[2021-03-17] MEDS: ASPirin 81 mg TAB PO SCH (09:47)
[2021-03-17] MEDS: ENOXAPARIN SOD 40 MG/0.4 ML SYRINGE SC SCH (09:47)
[2021-03-17] MEDS: THIAMINE 100mg/ml INJ (200mg/2ml VIAL) IV SCH (09:47)
[2021-03-17] MEDS: NITROGLYCERIN 0.2MG/HR TOPICAL PATCH TD SCH (09:47)
[2021-03-17] MEDS: PANTOPRAZOLE 40 MG TAB PO SCH (09:47)
[2021-03-17] MEDS: METOPROLOL TARTRATE 25 MG TAB PO SCH (09:47)
[2021-03-17 11:15] VITALS: BP 123/77
== END 2021-03-17 12:45 | disposition home or self-care (01) | DRG 427 ==
LOC: ER 14:33 → TELE 18:26 → TELE-WESTW 03-12 23:35
PROVIDERS: ADMIT Internal Medicine; ATTEND Family Medicine
DX: E03.9 Hypothyroidism, unspecified (principal); I24.9 Acute ischemic heart disease, unspecified; K76.0 Fatty (change of) liver, not elsewhere classified; R07.89 Other chest pain; E87.6 Hypokalemia; E66.9 Obesity, unspecified; G62.9 Polyneuropathy, unspecified; E78.5 Hyperlipidemia, unspecified; Z20.822 Contact with and (suspected) exposure to COVID-19; E78.00 Pure hypercholesterolemia, unspecified; I10 Essential (primary) hypertension; Z85.850 Personal history of malignant neoplasm of thyroid; Z68.30 Body mass index [BMI] 30.0-30.9, adult; Z79.899 Other long term (current) drug therapy; Z80.9 Family history of malignant neoplasm, unspecified; Z82.49 Family history of ischemic heart disease and other diseases of the circulatory system; Z82.5 Family history of asthma and other chronic lower respiratory diseases; Z83.3 Family history of diabetes mellitus; Z88.8 Allergy status to other drugs, medicaments and biological substances
CPT/HCPCS: 36415; 71046; 71275; 78452; 80048; 80053; 80061; 82550; 82728; 83880; 84443; 84484; 85025; 85379; 85652; 86141; 87081; 87426; 93005; 93017; 93306; 96361; 96372; 96374; 96375; 96376; 99291; G0378; J0153; J3490

== ENCOUNTER 2021-12-28 11:57 | Emergency (ER) | payer MEDICAID ==
[~2021-12-28] VITALS: Ht 162.6 cm; Wt 81.6 kg
[2021-12-28] MEDS ORDERED: LORazepam 2MG/ML-1ML VIAL IV ONE (12:15)
[2021-12-28 13:24] LABS: Basophils # (auto) 0 10 ^3/uL (0-0.2); Eosinophils # (auto) 0.2 10 ^3/uL (0-0.8); Eosinophils % (auto) 2.4 % (0.0-7.0); Hemoglobin 11.6 g/dL (12.2-16.2); Lymphocytes # (auto) 2.6 10 ^3/uL (0.4-5.4); Monocytes # (auto) 0.4 10 ^3/uL (0-1.3); Neutrophils # (auto) 4.1 10 ^3/uL (1.6-8.6); Nucleated Red Blood Cells % 0.2 %; White Blood Cell 7.3 10^3/uL (4.4-10.8)
[2021-12-28 13:26] LABS: Basophils % (auto) 0.5 % (0.0-2.0); Hematocrit 35.6 % (36.0-46.0); Mean Corpuscular Hemoglobin 26.6 pg (28.0-32.0); Mean Corpuscular Hgb Conc. 32.7 g/dL (32.0-36.0); Mean Corpuscular Volume 81.5 fL (80.0-100.0); Monocytes % (auto) 5.5 % (0.0-12.0); Neutrophils % (auto) 56.6 % (37.0-80.0); Red Blood Cells 4.37 10^6/uL (4.0-5.20); Red Cell Distribution Width 23.2 % (11.8-14.3)
[2021-12-28 13:44] LABS: Albumin 4.1 g/dL (3.4-5.0); BUN/Creatinine Ratio 12.7; Calcium 7.5 mg/dL (8.5-10.1); Magnesium 1.6 mg/dL (1.6-2.6); Potassium 3.3 mmol/L (3.5-5.1)
[2021-12-28 13:46] LABS: Total Protein 8.7 g/dL (6.4-8.2)
[2021-12-28] MEDS ORDERED: SODIUM CHLORIDE 0.9% 1,000 ML IV ONE (14:45)
[2021-12-28 15:04] VITALS: BP 97/70
== END 2021-12-28 15:03 | disposition home or self-care (01) ==
LOC: ER 11:57
DX: R07.89 Other chest pain (principal); R53.1 Weakness; E78.5 Hyperlipidemia, unspecified; F12.10 Cannabis abuse, uncomplicated; Z98.51 Tubal ligation status
CPT/HCPCS: 36415; 71046; 80053; 83735; 84484; 85025; 93005

== ENCOUNTER 2022-06-25 03:37 | Emergency (ER) | payer MEDICAID ==
[~2022-06-25] VITALS: Ht 157.5 cm; Wt 77.2 kg
[2022-06-25] MEDS ORDERED: LORazepam 2MG/ML-1ML VIAL IV ONE (04:30)
[2022-06-25] MEDS ORDERED: SODIUM CHLORIDE 0.9% 1,000 ML IV ONE ×2 (07:00)
[2022-06-25] MEDS ORDERED: THIAMINE 100mg/ml INJ (200mg/2ml VIAL) IV ONE (07:00)
[2022-06-25] MEDS ORDERED: chlordiazePOXIDE HCL 5 MG CAP PO ONE (07:00)
[2022-06-25 07:23] LABS: Basophils # (auto) 0 10 ^3/uL (0-0.2); Eosinophils # (auto) 0 10 ^3/uL (0-0.8); Eosinophils % (auto) 0.1 % (0.0-7.0); Monocytes # (auto) 0.4 10 ^3/uL (0-1.3); Neutrophils # (auto) 7.4 10 ^3/uL (1.6-8.6); Neutrophils % (auto) 84.1 % (37.0-80.0); White Blood Cell 8.8 10^3/uL (4.4-10.8)
[2022-06-25 07:25] LABS: Basophils % (auto) 0.3 % (0.0-2.0); Hematocrit 35.7 % (36.0-46.0); Hemoglobin 11.2 g/dL (12.2-16.2); Lymphocytes # (auto) 0.9 10 ^3/uL (0.4-5.4); Lymphocytes % (auto) 10.5 % (10.0-50.0); Mean Corpuscular Hemoglobin 26.2 pg (28.0-32.0); Mean Corpuscular Hgb Conc. 31.5 g/dL (32.0-36.0)
[2022-06-25 07:32] LABS: Albumin 3.3 g/dL (3.4-5.0); Anion Gap 13 (5-15); Blood Alcohol < 3.0 mg/dL (0-5); Blood Urea Nitrogen 14 mg/dL (7-18); Calcium 6.5 mg/dL (8.5-10.1); Carbon Dioxide 22 mmol/L (21-32); Chloride 104 mmol/L (98-107); Glucose 102 mg/dL (74-106); Sodium 139 mmol/L (136-145)
[2022-06-25 07:35] LABS: Alanine Aminotransferase 34 U/L (13-56); Alkaline Phosphatase 71 U/L (45-117); Aspartate Aminotransferase 39 U/L (15-37); BUN/Creatinine Ratio 18.4; Bilirubin, Total 1.8 mg/dL (0.2-1.0); GFR African American 104 mL/min; GFR Non-African American 86 mL/min; Total Protein 7.2 g/dL (6.4-8.2)
[2022-06-25] MEDS ORDERED: POTASSIUM EFFERVESENT TAB 25 MEQ PO ONE (08:45)
[2022-06-25] MEDS ORDERED: CHL10C PO (10:40)
[2022-06-25 10:44] VITALS: BP 99/77
== END 2022-06-25 10:47 | disposition home or self-care (01) ==
LOC: EDBD 03:37 → ER 03:39
DX: F10.239 Alcohol dependence with withdrawal, unspecified (principal); E87.6 Hypokalemia; F12.10 Cannabis abuse, uncomplicated; E78.5 Hyperlipidemia, unspecified; Z98.51 Tubal ligation status; Z88.6 Allergy status to analgesic agent; Y90.8 Blood alcohol level of 240 mg/100 ml or more
CPT/HCPCS: 36415; 80053; 80320; 85025; 93005; 96374; 99284; J2060

== ENCOUNTER 2022-07-25 14:32 | Inpatient (IN) | payer MEDICAID ==
[~2022-07-25] VITALS: Ht 162.6 cm; Wt 77.9 kg
[2022-07-25] MEDS: POTASSIUM CHL 20MEQ/100ML 100 ML IV SCH (10:07)
[~2022-07-25 14:32] MED LIST changes: +CHL10C PO
[2022-07-25] MEDS ORDERED: THIAMINE 100mg/ml INJ (200mg/2ml VIAL) IV ONE (15:30)
[2022-07-25 16:21] LABS: Eosinophils # (auto) 0.1 10 ^3/uL (0-0.8); Monocytes # (auto) 0.3 10 ^3/uL (0-1.3); Neutrophils # (auto) 3.1 10 ^3/uL (1.6-8.6); White Blood Cell 5.1 10^3/uL (4.4-10.8)
[2022-07-25 16:23] LABS: Basophils # (auto) 0 10 ^3/uL (0-0.2); Basophils % (auto) 0.7 % (0.0-2.0); Eosinophils % (auto) 1.6 % (0.0-7.0); Hematocrit 35.1 % (36.0-46.0); Hemoglobin 11.4 g/dL (12.2-16.2); Lymphocytes # (auto) 1.6 10 ^3/uL (0.4-5.4); Lymphocytes % (auto) 31.3 % (10.0-50.0); Mean Corpuscular Hemoglobin 27.1 pg (28.0-32.0); Mean Corpuscular Hgb Conc. 32.6 g/dL (32.0-36.0); Mean Corpuscular Volume 83.2 fL (80.0-100.0); Neutrophils % (auto) 60.4 % (37.0-80.0); Nucleated Red Blood Cells % 0.3 %; Red Blood Cells 4.22 10^6/uL (4.0-5.20)
[2022-07-25 16:24] LABS: Red Cell Distribution Width 24.5 % (11.8-14.3)
[2022-07-25 16:31] LABS: Albumin 3.7 g/dL (3.4-5.0); BUN/Creatinine Ratio 5.1; Calcium 7.4 mg/dL (8.5-10.1)
[2022-07-25 16:59] LABS: Bilirubin, Total 1.5 mg/dL (0.2-1.0); Total Protein 7.6 g/dL (6.4-8.2)
[2022-07-25 17:02] LABS: Potassium 2.9 mmol/L (3.5-5.1)
[2022-07-25] MEDS ORDERED: LORazepam 2MG/ML-1ML VIAL ONE (17:03)
[2022-07-25] MEDS ORDERED: LORazepam 2MG/ML-1ML VIAL IV ONE ×2 (17:15→22:00)
[2022-07-25] MEDS ORDERED: PANTOPRAZOLE 40mg/50ML NS AE 50 ML IV ONE (19:45)
[2022-07-25] MEDS ORDERED: PANTOPRAZOLE 80 MG in SODIUM CHL 0.9% 100 ML IV ONE (19:45)
[2022-07-25] MEDS ORDERED: SODIUM CHLORIDE 0.9% 1,000 ML IV SCH (19:45)
[2022-07-25] MEDS ORDERED: LORazepam 2MG/ML-1ML VIAL IV PRN (19:45)
[2022-07-25] MEDS ORDERED: chlordiazePOXIDE HCL 25 MG CAP PO SCH (19:45)
[2022-07-25] MEDS ORDERED: ONDANSETRON HCL 4 MG/2 ML VIAL IV PRN (19:45)
[2022-07-25 21:33] LABS: Blood Alcohol < 3.0 mg/dL (0-5); Phosphorus 4.6 mg/dL (2.5-4.90)
[2022-07-25] MEDS ORDERED: ASCORBIC ACID 500 MG TAB PO SCH (22:00)
[2022-07-26] MEDS ORDERED: LORazepam 2MG/ML-1ML VIAL IV PRN (09:15)
[2022-07-26] MEDS ORDERED: MAGNESIUM SULFATE 1GM/100ML 100 ML IV ONE ×4 (10:00→12:33)
[2022-07-26] MEDS ORDERED: chlordiazePOXIDE HCL 25 MG CAP PO SCH (10:00)
[2022-07-26] MEDS ORDERED: ZINC SULFATE 220mg CAP or TAB PO SCH (10:00)
[2022-07-26] MEDS ORDERED: POTASSIUM CHL 20MEQ/100ML 100 ML IV ONE ×2 (10:01→13:33)
[2022-07-26] MEDS: SODIUM CHLORIDE 0.9% 1,000 ML IV SCH (10:06)
[2022-07-26] MEDS: MAGNESIUM SULFATE 1GM/100ML 100 ML IV SCH ×4 (10:07→12:47)
[2022-07-26] MEDS: LORazepam 2MG/ML-1ML VIAL IV PRN ×2 (10:08→23:09)
[2022-07-26] MEDS: PANTOPRAZOLE 40mg/50ML NS AE 50 ML IV SCH ×3 (10:34→21:16)
[2022-07-26] MEDS: chlordiazePOXIDE HCL 25 MG CAP PO SCH ×2 (10:34→23:09)
[2022-07-26] MEDS: ASCORBIC ACID 500 MG TAB PO SCH ×2 (10:34→23:09)
[2022-07-26] MEDS: ZINC SULFATE 220mg CAP or TAB PO SCH (10:37)
[2022-07-26] MEDS: ONDANSETRON HCL 4 MG/2 ML VIAL IV PRN (11:37)
[2022-07-26] MEDS ORDERED: FOLIC ACID 1 MG, MULTIPLE VITAMIN 10 ML, MAGNESIUM SULF SDV 50% 8 MEQ, THIAMINE INJ 100... INJ SCH ×5 (12:00)
[2022-07-26] MEDS: FOLIC ACID 1 MG, MULTIPLE VITAMIN 10 ML, MAGNESIUM SULF SDV 50% 8 MEQ, THIAMINE INJ 100... INJ SCH ×5 (13:10)
[2022-07-26 13:19] LABS: Albumin 3.1 g/dL (3.4-5.0); Potassium 4.5 mmol/L (3.5-5.1)
[2022-07-26 13:25] LABS: BUN/Creatinine Ratio 9.4; Bilirubin, Total 1.3 mg/dL (0.2-1.0); Total Protein 6.4 g/dL (6.4-8.2)
[2022-07-26] MEDS: POTASSIUM CHL 20MEQ/100ML 100 ML IV SCH (13:34)
[2022-07-26 13:51] LABS: Calcium 5.9 mg/dL (8.5-10.1)
[2022-07-26] MEDS ORDERED: CALCIUM GLUC 1,000mg/50ml-NS 50 ML IV ONE (17:00)
[2022-07-26] MEDS: LEVOTHYROXINE SODIUM 100 MCG TAB PO SCH (17:39)
[2022-07-26 18:33] LABS: Free T4 (Free Thyroxine) 0.29 ng/dL (0.89-1.76)
[2022-07-26 18:34] LABS: Free T3 1.45 pg/mL (2.3-4.2)
[2022-07-26 18:47] LABS: Urine Bacteria FEW /hpf (None Seen); Urine Blood Negative /uL (Negative); Urine Hyaline Cast FEW /lpf (0 - 2); Urine Mucus FEW (None Seen); Urine Specific Gravity 1.012 (1.001-1.035); Urine WBC 1 /hpf (0 - 5)
[2022-07-27] MEDS: PANTOPRAZOLE 40mg/50ML NS AE 50 ML IV SCH ×5 (00:15→21:09)
[2022-07-27] MEDS: SODIUM CHLORIDE 0.9% 1,000 ML IV SCH ×3 (01:55→18:18)
[2022-07-27 05:00] VITALS: BP 103/72
[2022-07-27 06:07] LABS: RPR Non Reactive (Non Reactive)
[2022-07-27] MEDS: LEVOTHYROXINE SODIUM 100 MCG TAB PO SCH (07:00)
[2022-07-27 09:18] VITALS: BP 100/72
[2022-07-27] MEDS: ZINC SULFATE 220mg CAP or TAB PO SCH (09:38)
[2022-07-27] MEDS: chlordiazePOXIDE HCL 25 MG CAP PO SCH ×2 (09:38→21:49)
[2022-07-27] MEDS: ASCORBIC ACID 500 MG TAB PO SCH ×2 (09:39→21:50)
[2022-07-27] MEDS ORDERED: chlordiazePOXIDE HCL 25 MG CAP PO SCH (10:00)
[2022-07-27] MEDS: FOLIC ACID 1 MG, MULTIPLE VITAMIN 10 ML, MAGNESIUM SULF SDV 50% 8 MEQ, THIAMINE INJ 100... INJ SCH ×5 (13:59)
[2022-07-27 16:46] VITALS: BP 103/67
[2022-07-27] MEDS ORDERED: PANTOPRAZOLE 40 MG/10 ML VIAL INJ IV ONE (20:34)
[2022-07-27 22:00] VITALS: BP 98/70
[2022-07-28] MEDS: PANTOPRAZOLE 40mg/50ML NS AE 50 ML IV SCH ×5 (02:20→21:15)
[2022-07-28] MEDS: SODIUM CHLORIDE 0.9% 1,000 ML IV SCH ×3 (02:55→19:35)
[2022-07-28 05:00] VITALS: BP 94/66
[2022-07-28] MEDS: LEVOTHYROXINE SODIUM 100 MCG TAB PO SCH (05:54)
[2022-07-28] MEDS ORDERED: chlordiazePOXIDE HCL 25 MG CAP PO SCH (07:00)
[2022-07-28 07:04] LABS: Basophils # (auto) 0 10 ^3/uL (0-0.2); Basophils % (auto) 0.7 % (0.0-2.0); Eosinophils # (auto) 0.1 10 ^3/uL (0-0.8); Eosinophils % (auto) 3.2 % (0.0-7.0); Hematocrit 28.4 % (36.0-46.0); Hemoglobin 9.4 g/dL (12.2-16.2); Lymphocytes # (auto) 1.4 10 ^3/uL (0.4-5.4); Lymphocytes % (auto) 37.1 % (10.0-50.0); Mean Corpuscular Hemoglobin 28.6 pg (28.0-32.0); Mean Corpuscular Hgb Conc. 33.1 g/dL (32.0-36.0); Mean Corpuscular Volume 86.2 fL (80.0-100.0); Monocytes # (auto) 0.3 10 ^3/uL (0-1.3); Monocytes % (auto) 7.4 % (0.0-12.0); Neutrophils % (auto) 51.6 % (37.0-80.0); Nucleated Red Blood Cells % 0.2 %; Red Blood Cells 3.29 10^6/uL (4.0-5.20); White Blood Cell 3.8 10^3/uL (4.4-10.8)
[2022-07-28 07:24] LABS: Potassium 3.2 mmol/L (3.5-5.1)
[2022-07-28 07:31] LABS: Albumin 2.9 g/dL (3.4-5.0); BUN/Creatinine Ratio 4.2; Bilirubin, Total 1.1 mg/dL (0.2-1.0); Magnesium 1.6 mg/dL (1.6-2.6); Phosphorus 2.2 mg/dL (2.5-4.90); Total Protein 6.1 g/dL (6.4-8.2)
[2022-07-28 07:44] LABS: Red Cell Distribution Width 25.2 % (11.8-14.3)
[2022-07-28 07:55] LABS: Calcium 5.7 mg/dL (8.5-10.1)
[2022-07-28 09:00] VITALS: BP 104/73
[2022-07-28] MEDS: ZINC SULFATE 220mg CAP or TAB PO SCH (09:42)
[2022-07-28] MEDS: ASCORBIC ACID 500 MG TAB PO SCH ×2 (09:42→22:23)
[2022-07-28] MEDS: chlordiazePOXIDE HCL 25 MG CAP PO SCH ×2 (09:42→22:24)
[2022-07-28] MEDS ORDERED: CALCIUM GLUC 1,000mg/50ml-NS 50 ML IV ONE (10:45)
[2022-07-28] MEDS ORDERED: POTASSIUM EFFERVESENT TAB 25 MEQ PO ONE (10:45)
[2022-07-28 13:00] VITALS: BP 103/70
[2022-07-28] MEDS: FOLIC ACID 1 MG, MULTIPLE VITAMIN 10 ML, MAGNESIUM SULF SDV 50% 8 MEQ, THIAMINE INJ 100... INJ SCH ×5 (15:22)
[2022-07-28 17:00] VITALS: BP 102/76
[2022-07-28 22:00] VITALS: BP 111/75
[2022-07-29] MEDS: PANTOPRAZOLE 40mg/50ML NS AE 50 ML IV SCH ×5 (02:58→22:40)
[2022-07-29 05:00] VITALS: BP 111/75
[2022-07-29] MEDS: SODIUM CHLORIDE 0.9% 1,000 ML IV SCH ×3 (05:06→20:35)
[2022-07-29 05:52] LABS: Basophils # (auto) 0 10 ^3/uL (0-0.2); Basophils % (auto) 0.7 % (0.0-2.0); Eosinophils # (auto) 0.1 10 ^3/uL (0-0.8); Lymphocytes # (auto) 1.8 10 ^3/uL (0.4-5.4); Monocytes # (auto) 0.4 10 ^3/uL (0-1.3); Neutrophils # (auto) 1.8 10 ^3/uL (1.6-8.6); White Blood Cell 4.1 10^3/uL (4.4-10.8)
[2022-07-29 05:55] LABS: Eosinophils % (auto) 3.4 % (0.0-7.0); Hemoglobin 8.5 g/dL (12.2-16.2); Lymphocytes % (auto) 42.3 % (10.0-50.0); Mean Corpuscular Hemoglobin 28.4 pg (28.0-32.0); Mean Corpuscular Hgb Conc. 32.4 g/dL (32.0-36.0); Mean Corpuscular Volume 87.6 fL (80.0-100.0); Neutrophils % (auto) 43.6 % (37.0-80.0); Red Blood Cells 2.97 10^6/uL (4.0-5.20)
[2022-07-29 05:56] LABS: Red Cell Distribution Width 25.5 % (11.8-14.3)
[2022-07-29] MEDS: LEVOTHYROXINE SODIUM 100 MCG TAB PO SCH (06:09)
[2022-07-29 06:11] LABS: Albumin 2.6 g/dL (3.4-5.0); Calcium 6.2 mg/dL (8.5-10.1); Magnesium 1.6 mg/dL (1.6-2.6); Potassium 3.5 mmol/L (3.5-5.1)
[2022-07-29 06:15] LABS: Bilirubin, Total 0.7 mg/dL (0.2-1.0); Total Protein 5.4 g/dL (6.4-8.2)
[2022-07-29 08:00] VITALS: BP 114/77
[2022-07-29] MEDS: chlordiazePOXIDE HCL 25 MG CAP PO SCH ×2 (09:38→22:07)
[2022-07-29] MEDS: ZINC SULFATE 220mg CAP or TAB PO SCH (09:38)
[2022-07-29] MEDS: ASCORBIC ACID 500 MG TAB PO SCH ×2 (09:38→22:07)
[2022-07-29] MEDS: ONDANSETRON HCL 4 MG/2 ML VIAL IV PRN (10:32)
[2022-07-29 12:00] VITALS: BP 106/70
[2022-07-29] MEDS: FOLIC ACID 1 MG, MULTIPLE VITAMIN 10 ML, MAGNESIUM SULF SDV 50% 8 MEQ, THIAMINE INJ 100... INJ SCH ×5 (12:01)
[2022-07-29 16:00] VITALS: BP 110/81
[2022-07-29] MEDS: SUCRALFATE 1 GM/10 ML ORAL SUSP PO SCH (16:58)
[2022-07-29] MEDS: CALCIUM CARB 500 MG CHEW TAB PO SCH (16:58)
[2022-07-29] MEDS ORDERED: CALCIUM CHL 100MG/ML 1,000 MG in D5W 5% 100 ML IV ONE (18:15)
[2022-07-29 20:00] VITALS: BP 104/80
[2022-07-29 20:35] LABS: Albumin 2.7 g/dL (3.4-5.0); BUN/Creatinine Ratio 3.4; Calcium 6.4 mg/dL (8.5-10.1); Potassium 3.5 mmol/L (3.5-5.1)
[2022-07-29 20:38] LABS: Bilirubin, Total 0.6 mg/dL (0.2-1.0)
[2022-07-30] VITALS (7 sets, daily range): BP systolic 102–113; BP diastolic 74–80
[2022-07-30] MEDS: PANTOPRAZOLE 40mg/50ML NS AE 50 ML IV SCH ×2 (03:36→08:49)
[2022-07-30] MEDS: SODIUM CHLORIDE 0.9% 1,000 ML IV SCH (04:55)
[2022-07-30] MEDS: SUCRALFATE 1 GM/10 ML ORAL SUSP PO SCH ×2 (06:23→17:01)
[2022-07-30] MEDS: LEVOTHYROXINE SODIUM 25 MCG TAB PO SCH (06:24)
[2022-07-30 08:00] LABS: INR 1.15 (0.9-1.15)
[2022-07-30] MEDS: CALCIUM CARB 500 MG CHEW TAB PO SCH ×3 (08:00→18:00)
[2022-07-30] MEDS: ZINC SULFATE 220mg CAP or TAB PO SCH (10:00)
[2022-07-30] MEDS: chlordiazePOXIDE HCL 25 MG CAP PO SCH ×2 (10:00→21:03)
[2022-07-30] MEDS: ASCORBIC ACID 500 MG TAB PO SCH ×2 (10:00→21:04)
[2022-07-30] MEDS ORDERED: fentaNYL CITRATE 100 MCG/2 ML VL ONE (11:52)
[2022-07-30] MEDS ORDERED: MIDAZOLAM HCL 2MG/2ML 2ml VIAL (1mg/ml) ONE (11:52)
[2022-07-30] MEDS: FOLIC ACID 1 MG, MULTIPLE VITAMIN 10 ML, MAGNESIUM SULF SDV 50% 8 MEQ, THIAMINE INJ 100... INJ SCH ×5 (12:00)
[2022-07-30] MEDS ORDERED: LIDOCAINE VISCOUS 2% 15ML UD ONE (12:03)
[2022-07-30] MEDS ORDERED: ePHEDrine SULFATE 50 MG/ML AMP IV PRN (12:15)
[2022-07-30] MEDS ORDERED: MIDAZOLAM HCL 2MG/2ML 2ml VIAL (1mg/ml) IV PRN (12:15)
[2022-07-30] MEDS ORDERED: HYDROmorphone HCL 2 MG/ML VL/or syr IV PRN (12:15)
[2022-07-30] MEDS ORDERED: ONDANSETRON HCL 4 MG/2 ML VIAL IV PRN (12:15)
[2022-07-30] MEDS ORDERED: LABETALOL HCL 5 MG/ML 4ML SYRINGE IV PRN (12:15)
[2022-07-30] MEDS ORDERED: DexAMETHasone SOD PHOS 10MG/1ML VIAL INJ ONE (12:33)
[2022-07-30] MEDS ORDERED: PROPOFOL 10 MG/ML 20 ML IV ONE (12:33)
[2022-07-30] MEDS: METOCLOPRAMIDE HCL 5MG/ml INJ 2ml VIAL IV SCH ×2 (15:30→21:03)
[2022-07-30] MEDS: PANTOPRAZOLE 40 MG/10 ML VIAL INJ IV SCH (21:02)
[2022-07-30] MEDS ORDERED: PANTOPRAZOLE 40 MG/10 ML VIAL INJ IV SCH (22:00)
[2022-07-31 05:00] VITALS: BP 126/79
[2022-07-31] MEDS: METOCLOPRAMIDE HCL 5MG/ml INJ 2ml VIAL IV SCH ×2 (06:04→13:53)
[2022-07-31] MEDS: SUCRALFATE 1 GM/10 ML ORAL SUSP PO SCH ×2 (06:18→17:33)
[2022-07-31] MEDS: LEVOTHYROXINE SODIUM 25 MCG TAB PO SCH (06:18)
[2022-07-31 07:00] LABS: Albumin 2.7 g/dL (3.4-5.0); Calcium 6.5 mg/dL (8.5-10.1); Potassium 3.2 mmol/L (3.5-5.1)
[2022-07-31 07:04] LABS: BUN/Creatinine Ratio 3.6; Bilirubin, Total 0.6 mg/dL (0.2-1.0); Total Protein 5.8 g/dL (6.4-8.2)
[2022-07-31 09:00] VITALS: BP 113/80
[2022-07-31] MEDS: ZINC SULFATE 220mg CAP or TAB PO SCH (09:03)
[2022-07-31] MEDS: CALCIUM CARB 500 MG CHEW TAB PO SCH ×3 (09:03→17:33)
[2022-07-31] MEDS: PANTOPRAZOLE 40 MG/10 ML VIAL INJ IV SCH (09:03)
[2022-07-31] MEDS: ASCORBIC ACID 500 MG TAB PO SCH (09:03)
[2022-07-31] MEDS: chlordiazePOXIDE HCL 25 MG CAP PO SCH (09:04)
[2022-07-31] MEDS: FOLIC ACID 1 MG, MULTIPLE VITAMIN 10 ML, MAGNESIUM SULF SDV 50% 8 MEQ, THIAMINE INJ 100... INJ SCH ×5 (12:56)
[2022-07-31 13:00] VITALS: BP 111/74
[2022-07-31] MEDS ORDERED: POTASSIUM EFFERVESENT TAB 25 MEQ PO ONE (13:30)
[2022-07-31] MEDS ORDERED: LACTULOSE 20Gm/30ML SOLN PO ONE (13:30)
[2022-07-31] MEDS ORDERED: LEVO125T7 PO (13:33)
[2022-07-31] MEDS ORDERED: SUCR1SUS10 PO (13:33)
[2022-07-31] MEDS ORDERED: PANT40TA2 PO (13:33)
[2022-07-31 16:58] VITALS: BP 102/77
[2022-08-01] MEDS ORDERED: CALC1TAB92 PO (17:25)
== END 2022-07-31 21:20 | disposition home or self-care (01) | DRG 241 ==
LOC: EDBD 14:32 → ER 14:32 → TELE 19:54 → UNDODISIN 23:55 → TELE-WESTW 07-26 23:24
PROVIDERS: ADMIT Nurse Practitioner Family; ATTEND Internal Medicine
PROC: 0DB68ZX Excision of Stomach, Via Natural or Artificial Opening Endoscopic, Diagnostic (ICD-10-PCS; 2022-07-30)
PROC: 0DB98ZX Excision of Duodenum, Via Natural or Artificial Opening Endoscopic, Diagnostic (ICD-10-PCS; principal; 2022-07-30 12:08)
DX: K29.71 Gastritis, unspecified, with bleeding (principal); G92.8 Other toxic encephalopathy; K20.91 Esophagitis, unspecified with bleeding; K25.4 Chronic or unspecified gastric ulcer with hemorrhage; F10.230 Alcohol dependence with withdrawal, uncomplicated; E03.9 Hypothyroidism, unspecified; E83.42 Hypomagnesemia; E87.6 Hypokalemia; Z20.822 Contact with and (suspected) exposure to COVID-19; F41.9 Anxiety disorder, unspecified; E78.5 Hyperlipidemia, unspecified; K59.00 Constipation, unspecified; G62.9 Polyneuropathy, unspecified; K44.9 Diaphragmatic hernia without obstruction or gangrene; Z91.199 Patient's noncompliance with other medical treatment and regimen due to unspecified reason; Z88.6 Allergy status to analgesic agent; Z85.850 Personal history of malignant neoplasm of thyroid; Z82.49 Family history of ischemic heart disease and other diseases of the circulatory system; Z83.3 Family history of diabetes mellitus; Z88.8 Allergy status to other drugs, medicaments and biological substances
CPT/HCPCS: 36415; 71045; 74176; 80053; 80320; 81001; 82140; 82270; 82607; 83690; 83735; 84100; 84439; 84443; 84481; 84484; 84702; 85025; 85610; 85652; 85730; 86592; 86703; 86850; 86900; 86901; 87426; 93005; 96374; 96375; 96376; C9113; G0378; J1100; J2250; J2405; J2704; J3480; J7060

== ENCOUNTER 2022-12-12 19:38 | Inpatient (IN) | payer MEDICAID ==
[~2022-12-12] VITALS: Ht 167.6 cm; Wt 75.0 kg
[~2022-12-12 19:38] MED LIST changes: +CALC1TAB92 PO; +PANT40TA2 PO; +SUCR1SUS10 PO
[2022-12-12 21:35] LABS: Basophils # (auto) 0 10 ^3/uL (0-0.2); Basophils % (auto) 0.3 % (0.0-2.0); Eosinophils # (auto) 0 10 ^3/uL (0-0.8); Eosinophils % (auto) 0.3 % (0.0-7.0); Hemoglobin 12.5 g/dL (12.2-16.2); Lymphocytes # (auto) 1.1 10 ^3/uL (0.4-5.4); Lymphocytes % (auto) 19.5 % (10.0-50.0); Mean Corpuscular Hemoglobin 29.6 pg (28.0-32.0); Mean Corpuscular Hgb Conc. 33.9 g/dL (32.0-36.0); Mean Corpuscular Volume 87.3 fL (80.0-100.0); Monocytes # (auto) 0.3 10 ^3/uL (0-1.3); Monocytes % (auto) 5.3 % (0.0-12.0); Neutrophils # (auto) 4.1 10 ^3/uL (1.6-8.6); Neutrophils % (auto) 74.6 % (37.0-80.0); Nucleated Red Blood Cells % 0.1 %; Red Blood Cells 4.24 10^6/uL (4.0-5.20); White Blood Cell 5.5 10^3/uL (4.4-10.8)
[2022-12-12 21:55] LABS: Albumin 3.6 g/dL (3.4-5.0); Anion Gap 11 (5-15); Blood Alcohol < 3.0 mg/dL (0-5); Blood Urea Nitrogen 6 mg/dL (7-18); Calcium 6.4 mg/dL (8.5-10.1); Carbon Dioxide 25 mmol/L (21-32); Chloride 104 mmol/L (98-107); Glucose 127 mg/dL (74-106); Potassium 3.3 mmol/L (3.5-5.1); Sodium 140 mmol/L (136-145)
[2022-12-12 21:59] LABS: Alanine Aminotransferase 44 U/L (13-56); Alkaline Phosphatase 126 U/L (45-117); Aspartate Aminotransferase 54 U/L (15-37); BUN/Creatinine Ratio 7.1 (10.0-20.0); Bilirubin, Total 1.8 mg/dL (0.2-1.0); GFR African American 91 mL/min; GFR Non-African American 76 mL/min; Total Protein 7.2 g/dL (6.4-8.2)
[2022-12-13] MEDS ORDERED: LACTATED RINGER'S 2,000 ML IV ONE (01:45)
[2022-12-13] MEDS ORDERED: LORazepam 2MG/ML-1ML VIAL IV ONE (01:45)
[2022-12-13] MEDS ORDERED: levETIRAcetam 500 MG/5ML INJ IV ONE (01:56)
[2022-12-13] MEDS ORDERED: POTASSIUM CHL 20 Meq TABLET PO ONE (02:15)
[2022-12-13] MEDS ORDERED: IBUPROFEN 600 MG TAB PO PRN (02:15)
[2022-12-13] MEDS ORDERED: LORazepam 2MG/ML-1ML VIAL IV PRN (02:15)
[2022-12-13] MEDS ORDERED: DOCUSATE SOD 100 MG CAP PO PRN (02:15)
[2022-12-13] MEDS ORDERED: CALCIUM GLUC 1,000mg/50ml-NS 50 ML IV ONE (02:15)
[2022-12-13] MEDS ORDERED: ONDANSETRON HCL 4 MG/2 ML VIAL IV PRN (02:15)
[2022-12-13] MEDS ORDERED: MVI in SODIUM CHLORIDE 0.9% 1,010 ML ONE (05:01)
[2022-12-13] MEDS ORDERED: NITROGLYCERIN 0.4 MG SL TAB SL PRN (05:15)
[2022-12-13] MEDS ORDERED: MORPHINE SULFATE INJ 2 MG/ml SYRG IV PRN (05:15)
[2022-12-13] MEDS: SODIUM CHLOR 0.9% PF (SALINE LOCK) 10ML VIAL/SYR IV SCH ×2 (06:00→14:15)
[2022-12-13 06:16] LABS: Urine Bacteria FEW /hpf (None Seen); Urine Blood Negative /uL (Negative); Urine WBC 2 /hpf (0 - 5)
[2022-12-13 06:37] LABS: Alcohol, Urine < 3.0 mg/dL (0-10); Amphetamine Screen, Urine NEGATIVE (NEGATIVE); Barbiturate Scree,Urine NEGATIVE (NEGATIVE); Benzodiazephine Screen, Urine NEGATIVE (NEGATIVE); Cannabinoid Screen, Urine NEGATIVE (NEGATIVE); Cocaine Screen, Urine NEGATIVE (NEGATIVE); Opiate Scree,Urine NEGATIVE (NEGATIVE); Phencyclidine Screen, Urine NEGATIVE (NEGATIVE)
[2022-12-13] MEDS ORDERED: LEVOTHYROXINE SODIUM 50 MCG TAB PO SCH (07:00)
[2022-12-13 07:09] LABS: Basophils # (auto) 0 10 ^3/uL (0-0.2); Basophils % (auto) 0.5 % (0.0-2.0); Eosinophils # (auto) 0.1 10 ^3/uL (0-0.8); Hematocrit 33.8 % (36.0-46.0); Hemoglobin 11.3 g/dL (12.2-16.2); Lymphocytes # (auto) 1.5 10 ^3/uL (0.4-5.4); Lymphocytes % (auto) 41.1 % (10.0-50.0); Mean Corpuscular Hemoglobin 29.2 pg (28.0-32.0); Mean Corpuscular Hgb Conc. 33.3 g/dL (32.0-36.0); Mean Corpuscular Volume 87.7 fL (80.0-100.0); Monocytes # (auto) 0.2 10 ^3/uL (0-1.3); Monocytes % (auto) 6.2 % (0.0-12.0); Neutrophils # (auto) 1.9 10 ^3/uL (1.6-8.6); Neutrophils % (auto) 50.2 % (37.0-80.0); Nucleated Red Blood Cells % 0.2 %; Red Blood Cells 3.85 10^6/uL (4.0-5.20); White Blood Cell 3.7 10^3/uL (4.4-10.8)
[2022-12-13 07:17] LABS: Calcium 6.4 mg/dL (8.5-10.1)
[2022-12-13 07:20] LABS: BUN/Creatinine Ratio 6.1 (10.0-20.0); Bilirubin, Total 1.5 mg/dL (0.2-1.0); Total Protein 5.8 g/dL (6.4-8.2)
[2022-12-13] MEDS ORDERED: IBUPROFEN 400 MG TAB PO PRN (09:00)
[2022-12-13] MEDS ORDERED: FAMOTIDINE (10MG/ML) 2ML VL IV SCH (10:00)
[2022-12-13] MEDS ORDERED: FOLIC ACID 1 MG, MULTIPLE VITAMIN 10 ML, MAGNESIUM SULF SDV 50% 8 MEQ, THIAMINE INJ 100... INJ SCH ×5 (12:00)
[2022-12-13] MEDS ORDERED: POTASSIUM EFFERVESENT TAB 25 MEQ PO ONE (14:15)
[2022-12-13 16:23] VITALS: BP 111/79
== END 2022-12-13 16:50 | disposition home or self-care (01) | DRG 53 ==
LOC: EDBD 19:38 → ER 19:44 → TELE 12-13 05:10
PROVIDERS: ADMIT Nurse Practitioner Family; ATTEND Internal Medicine
DX: G40.909 Epilepsy, unspecified, not intractable, without status epilepticus (principal); E83.51 Hypocalcemia; D72.819 Decreased white blood cell count, unspecified; E87.6 Hypokalemia; F10.239 Alcohol dependence with withdrawal, unspecified; F41.9 Anxiety disorder, unspecified; R74.01 Elevation of levels of liver transaminase levels; R74.8 Abnormal levels of other serum enzymes; E03.9 Hypothyroidism, unspecified; Z59.01 Sheltered homelessness; Z82.49 Family history of ischemic heart disease and other diseases of the circulatory system; Z83.3 Family history of diabetes mellitus; Z85.850 Personal history of malignant neoplasm of thyroid; Z86.73 Personal history of transient ischemic attack (TIA), and cerebral infarction without residual deficits; Z87.59 Personal history of other complications of pregnancy, childbirth and the puerperium; Z88.6 Allergy status to analgesic agent; Z88.1 Allergy status to other antibiotic agents; Z88.5 Allergy status to narcotic agent
CPT/HCPCS: 36415; 80053; 80307; 80320; 81001; 84443; 84702; 85025; 96365; 96366; 96367; 96375; G0378; J3490; J7060